=== PATIENT | female | born 1970 | race American Indian/Alaskan Native ===

== ENCOUNTER → 2020-06-04 | Outpatient (CLI) | payer BC | END | disposition home or self-care (01) | LOC: SLR 11:00 | PROVIDERS: ATTEND Surgery | DX: G47.30 Sleep apnea, unspecified (principal) | CPT/HCPCS: G0399 ==

== ENCOUNTER 2020-06-20 08:06 | Outpatient (CLI) | payer BC ==
--- NOTE | 2020-06-20 11:12 | Fluoroscopy Report ---
UPPER GI HISTORY: FUNCTIONAL DYSPEPSIA. TECHNIQUE: Single and double contrast barium technique utilized to evaluate the esophagus, stomach, and duodenal C-loop. FINDINGS: To begin the exam, swallowing was evaluated in the lateral position under direct fluorosco py. Swallowing was normal. No mucosal irregularity, mass, mass effect, or critical stenosis. There were no abnormal tertiary c ontractions as seen with dysmotility. One or 2 episodes of gastroesophageal reflux to the mid esophag us was witnessed. IMPRESSION: Mild gastroesophageal reflux. Normal anatomy. Fluoroscopic time: 2.1 minutes Number of fluoroscopic images: 23 Signer Name: Tao Kan Jr, MD Signed: 06/20/2020 11:08 AM Workstation Name: [id number]
--- NOTE | 2020-06-20 12:33 | Electrocardiograph Report ---
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
--- NOTE | 2020-06-20 14:05 | Treadmill Report ---
EXERCISE ECG/STRESS TEST REPORT REASON FOR TEST: Preoperative assessment for bariatric surgery. The patient exercised for 7 minutes and 30 seconds of a Jitendra protocol, reaching stage 3 and achieving 8.5 METs. Peak heart rate was 166 beats per minute. Peak blood pressure was 160 systolic. There was no chest pain. Test was stopped for fatigue. Baseline ECG was sinus rhythm. With exercise, there were no ST changes of ischemia. No significant dysrhythmias were noted. CONCLUSION: 1. Good exercise capacity. 2. No chest pain. 3. No ST changes of ischemia. 4. No significant dysrhythmias. 5. This is a normal exercise ECG test. JOB# [id number] CA/NTS
== END 2020-06-20 08:07 | disposition home or self-care (01) ==
LOC: FLUORO 08:06
PROVIDERS: ATTEND Surgery
DX: K21.9 Gastro-esophageal reflux disease without esophagitis (principal); K30 Functional dyspepsia
CPT/HCPCS: 74246; 93005; 93017

== ENCOUNTER 2020-07-23 07:19 | Day surgery (SDC) | payer BC ==
[~2020-07-23 07:19] MED LIST: SODIUM CHLORIDE 0.9% 1000 ML 1,000 ML IV SCH
--- NOTE | 2020-07-23 08:04 | Anesthesia Day of Surgery ---
Anesthesia Day of Surgery - Day of Surgery Patient Examined: Yes Patient H&P Reviewed: Yes Patient is NPO: Yes
--- NOTE | 2020-07-23 08:06 | Anesthesia Consultation ---
Anesthesia Consult and Med Hx Date of service: 07/23/20 - Airway Anesthetic Teeth Evaluation: Good ROM Head & Neck: Adequate Mental/Hyoid Distance: Adequate Mallampati Class: Class I Intubation Access Assessment: Good - Pre-Operative Health Status ASA Pre-Surgery Classification: ASA3 Proposed Anesthetic Plan: MAC - Pulmonary Hx Asthma: Yes (Flares up with URI) Hx Respiratory Symptoms: No (+2FS) Hx Sleep Apnea: Yes - Cardiovascular System Hx Hypertension: Yes (Pt reports negative cardiac workup) - Central Nervous System Hx Back Pain: Yes Hx Psychiatric Problems: Yes (Depression) - Gastrointestinal Hx Gastroesophageal Reflux Disease: No - Endocrine Hx Renal Disease: No Hx Liver Disease: No Hx Non-Insulin Dependent Diabetes: No Hx Thyroid Disease: Yes (In the past; off meds) - Hematic Hx Sickle Cell Disease: No - Other Systems Hx Obesity: Yes
--- NOTE | 2020-07-23 08:24 | Operative Report ---
Operative Report Operative Report: DATE: 07/23/2020 SURGERY: Upper endoscopy. SURGEON: Lianet Gonsalez M.D. PROCEDURE: EGD with biopsy PRE OP DX: morbid obesity, GERD POST OP DX: morbid obesity, GERD TYPE OF ANESTHESIA: MAC. ESTIMATED BLOOD LOSS: None. COMPLICATIONS: None. SPECIMENS REMOVED: antral and duodenal bx FINDINGS: 1. Small hiatal hernia. 2. peptic ulcer disease with ulcers seen in antrum pre-pyloric and duodenum INDICATIONS:INDICATION FOR PROCEDURE: Patient is a 49-year-old female with a long history of morbid obesity. She is planned to have a weight loss procedure and is here for preoperative planning EGD. PROCEDURE DETAILS: After consent was reviewed, patient was taken back to the operating room where patient was placed in the left lateral decubitus position and a bite block was placed in the mouth. After a time-out was called, MAC anesthesia was initiated. I then passed the endoscope into her oropharynx, into her esophagus, visualized the entire esophagus, which was all within normal limits. Z-line was noted to about 36 cm from incisors. I then visualized the stomach and the first portion of the duodenum. There was noted to be shallow ulcerations in the antrum, pre- pyloric, and in the duodenum. No bleeding or craters were seen. A cold forceps biopsy of both areas was taken and will be sent to pathology to evaluate for H.pylori. I then retroflexed the scope in the stomach and visualized the hiatus and I could see a small hiatal hernia. I then desufflated the stomach and removed the endoscope. Patient tolerated procedure well and was transferred to recovery room in good and stable condition.
--- NOTE | 2020-07-23 08:24 | Discharge Summary ---
Providers - Providers Date of Admission: 07/23/2020 Date of discharge: 07/23/20 Attending physician: MAURICIO ZUNIGA MD Hospitalization Reason for admission: egd pre-op bariatric surgery Condition: Good Procedures: egd with bx Hospital course: Pt presented for a pre-op EGD as part of planning for up coming bariatric surgery. Procedure was uneventful and pt recovered well and was discharged to home. Disposition: DC- TO HOME OR SELFCARE Final Discharge Diagnosis (Prints w/discharge instructions): morbid obesity, dyspepsia Core Measure Documentation - Palliative Care Palliative Care/ Comfort Measures: Not Applicable - Core Measures Any of the following diagnoses?: none Exam - Physical Exam Narrative exam: unchanged from pre-op Plan Diet: low carbohydrate Follow up with: MARIANO SINGH [Other] - 7 Days
[2020-07-23] MEDS ORDERED: fentaNYL 100 MCG/2 ML INJ ONE (08:53)
[2020-07-23] MEDS ORDERED: propofoL 200 MG/20 ML VIAL IV ONE (08:53)
[2020-07-23] MEDS ORDERED: ONDANSETRON 4 MG/2 ML INJ ONE (08:58)
[2020-07-23] MEDS ORDERED: LIDOCAINE MPF (2%) 20 MG/1 ML VIAL 5 ML ONE (08:58)
[2020-07-23] MEDS ORDERED: SUCRALFATE 1 GM/10 ML ORAL LIQD PO SCH (09:30)
[2020-07-23 10:54] VITALS: BP 144/79
--- NOTE | 2020-07-23 15:02 | Post Anesthesia Evaluation ---
- Post Anesthesia Evaluation Patient Participated: Yes Airway Patent: Yes Stable Respiratory Function: Yes Nausea/Vomiting: No Temp > 96.8F: Yes Pain Manageable: Yes Adequeate Hydration: Yes Anesthesia Complications: No Block Receding Appropriately: Not Applicable Patient on Ventilator: No
== END 2020-07-23 10:15 | disposition home or self-care (01) ==
LOC: GIO 07:19
PROVIDERS: ATTEND Surgery
DX: K21.9 Gastro-esophageal reflux disease without esophagitis (principal); K44.9 Diaphragmatic hernia without obstruction or gangrene; E66.01 Morbid (severe) obesity due to excess calories; I10 Essential (primary) hypertension; J45.909 Unspecified asthma, uncomplicated; G47.30 Sleep apnea, unspecified; F32.9 Major depressive disorder, single episode, unspecified; Z68.42 Body mass index [BMI] 45.0-49.9, adult; Z79.899 Other long term (current) drug therapy
CPT/HCPCS: 43239; 88305; 88342; J2405; J2704; J3010; J7030

== ENCOUNTER 2020-09-17 06:49 | Day surgery (SDC) | payer BC ==
[2020-09-17] MEDS ORDERED: SODIUM CHLORIDE 0.9% 1000 ML 1,000 ML IV SCH (07:00)
[2020-09-17] MEDS ORDERED: propofoL 200 MG/20 ML VIAL IV ONE (07:20)
[2020-09-17] MEDS ORDERED: LIDOCAINE MPF (2%) 20 MG/1 ML VIAL 5 ML ONE (07:20)
--- NOTE | 2020-09-17 07:31 | Anesthesia Consultation ---
Anesthesia Consult and Med Hx Date of service: 09/17/20 - Airway Anesthetic Teeth Evaluation: Good ROM Head & Neck: Adequate Mental/Hyoid Distance: Adequate Mallampati Class: Class II Intubation Access Assessment: Probably Good - Cardiac Exam Cardiac Exam: RRR - Pre-Operative Health Status ASA Pre-Surgery Classification: ASA2, ASA3 Proposed Anesthetic Plan: MAC - Pulmonary Hx Asthma: Yes (Flares up with URI) Hx Respiratory Symptoms: No (+2FS) Hx Sleep Apnea: Yes - Cardiovascular System Hx Hypertension: Yes (Pt reports negative cardiac workup) Hx Heart Attack/AMI: No - Central Nervous System Hx Back Pain: Yes Hx Psychiatric Problems: Yes (Depression) - Gastrointestinal Hx Gastroesophageal Reflux Disease: No - Endocrine Hx Renal Disease: No Hx Liver Disease: No Hx Non-Insulin Dependent Diabetes: No Hx Thyroid Disease: Yes (In the past; off meds) - Hematic Hx Sickle Cell Disease: No - Other Systems Hx Obesity: Yes - Additional Comments Anesthesia Medical History Comments: No h/o GAC. No FHAC.
--- NOTE | 2020-09-17 07:32 | Anesthesia Day of Surgery ---
Anesthesia Day of Surgery - Day of Surgery Patient Examined: Yes Patient H&P Reviewed: Yes Patient is NPO: Yes Beta Blockers: Yes Cardiac Clearance: Yes (negative cardiac workup per patient. ) Pulmonary Clearance: No Sharan's Test: N/A
--- NOTE | 2020-09-17 08:12 | Operative Report ---
Operative Report Operative Report: DATE: 09/17/2020 SURGERY: Upper endoscopy. SURGEON: Lianet Gonsalez M.D. PROCEDURE: EGD with biopsy PRE OP DX: morbid obesity, GERD, hx H. Pylori, hx PUD POST OP DX: same as pre-op TYPE OF ANESTHESIA: MAC. ESTIMATED BLOOD LOSS: None. COMPLICATIONS: None. SPECIMENS REMOVED: antral biopsy FINDINGS: 1. Small hiatal hernia. 2. Otherwise, normal esophagus, stomach and first portion of duodenum. INDICATIONS:INDICATION FOR PROCEDURE: Patient is a 49-year-old female with a long history of morbid obesity. She is planned to have a weight loss procedure and is here for preoperative planning EGD. She had a prior to EGD that showed gastric ulcers and bx was positive for H. Pylori. She completed the therapy for it and has continued pantoprazole. PROCEDURE DETAILS: After consent was reviewed, patient was taken back to the operating room where patient was placed in the left lateral decubitus position and a bite block was placed in the mouth. After a time-out was called, MAC anesthesia was initiated. I then passed the endoscope into her oropharynx, into her esophagus, visualized the entire esophagus, which was all within normal limits. Z-line was noted to about 36cm from incisors. I then visualized the stomach and the first portion of the duodenum and there were no abnormalities I could clearly visualize except for antral gastritis. A cold forceps biopsy of the antrum was taken and will be sent to pathology to evaluate for H.pylori. I then retroflexed the scope in the stomach and visualized the hiatus and I could see a small hiatal hernia. There were no visible ulcers and there was much minimal gastritis compared to the last EGD. I then desufflated the stomach and removed the endoscope. Patient tolerated procedure well and was transferred to recovery room in good and stable condition.
--- NOTE | 2020-09-17 08:13 | Discharge Summary ---
Providers - Providers Date of Admission: 09/17/2020 Date of discharge: 09/17/20 Attending physician: MAURICIO ZUNIGA MD Primary care physician: MARIANO HUA Hospitalization Reason for admission: EGD Condition: Good Procedures: EGD with biopsy Hospital course: Pt presented for a pre-op EGD as part of planning for up coming bariatric surgery. Procedure was uneventful and pt recovered well and was discharged to home. Disposition: DC-01 TO HOME OR SELFCARE Final Discharge Diagnosis (Prints w/discharge instructions): GERD, morbid obesity Core Measure Documentation - Palliative Care Palliative Care/ Comfort Measures: Not Applicable - Core Measures Any of the following diagnoses?: none Exam - Physical Exam Narrative exam: unchanged from pre-op Plan Activity: no restrictions Diet: low carbohydrate Follow up with: MARIANO HUA MD [Primary Care Provider] - 7 Days
[2020-09-17 08:41] VITALS: BP 128/77
== END 2020-09-17 06:50 | disposition home or self-care (01) ==
LOC: GIO 06:49
PROVIDERS: ATTEND Surgery
DX: K21.9 Gastro-esophageal reflux disease without esophagitis (principal); E66.01 Morbid (severe) obesity due to excess calories; K27.9 Peptic ulcer, site unspecified, unspecified as acute or chronic, without hemorrhage or perforation; K44.9 Diaphragmatic hernia without obstruction or gangrene; K29.50 Unspecified chronic gastritis without bleeding; I10 Essential (primary) hypertension; J45.909 Unspecified asthma, uncomplicated; G47.30 Sleep apnea, unspecified; F32.9 Major depressive disorder, single episode, unspecified; E07.9 Disorder of thyroid, unspecified; Z68.41 Body mass index [BMI] 40.0-44.9, adult; Z79.899 Other long term (current) drug therapy
CPT/HCPCS: 43239; 88305; 88342; J2704; J7030

== ENCOUNTER 2020-11-04 07:30 | Inpatient (IN) | payer BC ==
--- NOTE | 2020-10-30 14:54 | Anesthesia Consultation ---
Anesthesia Consult and Med Hx Date of service: 11/04/20 - Airway Anesthetic Teeth Evaluation: Good ROM Head & Neck: Adequate Mental/Hyoid Distance: Adequate Mallampati Class: Class I Intubation Access Assessment: Good - Pre-Operative Health Status ASA Pre-Surgery Classification: ASA3 Proposed Anesthetic Plan: General - Pulmonary Hx Smoking: No (PFTs-mild restrictive) Hx Asthma: Yes (WHEN HAS COLD.LAST IH USE 2019) Hx Respiratory Symptoms: No (+2FS) Hx Sleep Apnea: Yes (DX SLEEP APNEA WITH CPAP USE) - Cardiovascular System Hx Hypertension: Yes Hx Heart Attack/AMI: No (Negative ETT) - Central Nervous System Hx Seizures: No Hx Back Pain: Yes Hx Psychiatric Problems: Yes (Anxiety/Depression) - Gastrointestinal Hx Gastroesophageal Reflux Disease: No - Endocrine Hx Renal Disease: No Hx Liver Disease: No Hx Non-Insulin Dependent Diabetes: No (5.9) Hx Thyroid Disease: Yes (In the past; off meds) - Hematic Hx Anemia: No Hx Sickle Cell Disease: No - Other Systems Hx Alcohol Use: Yes (OCC.) Hx Substance Use: No Hx Cancer: No Hx Obesity: Yes
[2020-10-30 15:07] LABS: Alanine Aminotransferase 11 units/L (7-56); Blood Urea Nitrogen 17 mg/dL (7-17); Calcium 9.6 mg/dL (8.4-10.2); Hemolysis Index 3
[2020-10-30 15:09] LABS: BUN/Creatinine Ratio 28
[2020-10-30 15:15] LABS: Hematocrit 38.7 % (30.3-42.9); Mean Corpuscular HGB Conc 34 % (30-34); Mean Corpuscular Volume 82 fl (79-97); Platelet Count 240 K/mm3 (140-440); Red Blood Count 4.71 M/mm3 (3.65-5.03); Red Cell Distribution Width 14.3 % (13.2-15.2)
[~2020-11-04 07:30] MED LIST changes: +ACETAMINOPHEN IV 1,000 MG/100 ML BOTTLE IV NR; +BUPIVACAINE/PF (0.5%) 5 MG/1 ML 30 ML VIAL INFILTRATI ONE; +ENOXAPARIN 40 MG/0.4 ML INJ SUB-Q NR; +GABAPENTIN 500 MG/10 ML ORAL LIQD PO NR; +LIDOCAINE 1%/EPINEPHRINE 1:100,000 VIAL (20 ML) INFILTRATI ONE; +MIDAZOLAM 2 MG/2 ML INJ IV NR; -SODIUM CHLORIDE 0.9% 1000 ML 1,000 ML IV SCH; +metroNIDAZOLE/NS 500 MG/100 ML 500 MG/100 ML BAG IV NR
[2020-11-04] MEDS ORDERED: MAGNESIUM SULFATE 4 GM/100 ML BAG IV ONE (07:58)
[2020-11-04] MEDS ORDERED: ROCURONIUM 50 MG/5 ML INJ IV ONE ×2 (08:16→11:04)
[2020-11-04] MEDS ORDERED: ONDANSETRON 4 MG/2 ML INJ ONE (08:16)
[2020-11-04] MEDS ORDERED: LIDOCAINE (2%) 20 MG/1 ML VIAL 20 ML MDV INFILTRATI ONE (08:18)
[2020-11-04] MEDS ORDERED: dexAMETHasone 20 MG/5 ML VIAL ONE (08:19)
[2020-11-04] MEDS ORDERED: KETAMINE/STERILE WATER 50 MG/ML SYRINGE ONE (08:20)
[2020-11-04] MEDS ORDERED: LIDOCAINE MPF (2%) 20 MG/1 ML VIAL 5 ML ONE (08:24)
[2020-11-04] MEDS: LACTATED RINGERS 1,000 ML IV SCH ×2 (08:35→13:32)
--- NOTE | 2020-11-04 08:55 | Anesthesia Day of Surgery ---
Anesthesia Day of Surgery - Day of Surgery Patient Examined: Yes Patient H&P Reviewed: Yes Patient is NPO: Yes
[2020-11-04] MEDS ORDERED: SCOPOLAMINE TRANSDERMAL PATCH 72 HR TD SCH (10:00)
[2020-11-04] MEDS ORDERED: SODIUM CHLORIDE 0.9% 100 ML ONE (10:47)
[2020-11-04] MEDS ORDERED: BUPIVACAINE/PF (0.5%) 5 MG/1 ML 30 ML VIAL INFILTRATI ONE (10:56)
[2020-11-04] MEDS ORDERED: SODIUM CHLORIDE 0.9% 100 ML IVPB IV ONE (10:56)
[2020-11-04] MEDS ORDERED: LIDOCAINE 1%/EPINEPHRINE 1:100,000 VIAL (20 ML) INFILTRATI ONE (10:57)
[2020-11-04] MEDS ORDERED: SUGAMMADEX SODIUM 200 MG/2 ML VIAL IV ONE (11:45)
[2020-11-04] MEDS ORDERED: WATER FOR IRRIG STERILE 1,000 ML BOTTLE IR ONE (11:48)
[2020-11-04] MEDS ORDERED: SODIUM CHLORIDE 0.9% IRR 1,000 ML BOTTLE IR ONE (11:48)
[2020-11-04] MEDS ORDERED: fentaNYL 100 MCG/2 ML INJ ONE (12:14)
[2020-11-04] MEDS: fentaNYL 100 MCG/2 ML INJ IV PRN ×2 (12:17→12:45)
[2020-11-04] MEDS ORDERED: MORPHINE 2 MG/1 ML INJ IV PRN (12:46)
[2020-11-04] MEDS ORDERED: METOCLOPRAMIDE 10 MG/2 ML INJ IV PRN (12:46)
[2020-11-04] MEDS ORDERED: ONDANSETRON 4 MG/2 ML INJ IV PRN (12:46)
[2020-11-04] MEDS ORDERED: HYDROcodone/Acetaminophen 7.5-325MG-15ML ORAL LIQD PO PRN (12:46)
[2020-11-04] MEDS ORDERED: HYDROmorphone 1 MG/1 ML INJ IV PRN (12:46)
--- NOTE | 2020-11-04 12:57 | Operative Report ---
Operative Report Operative Report: DATE:11/04/2020 Surgeon: Lianet Gonsalez MD [employer] surgeon: Chelsy Ruvalcaba CSA MD Pre-op Dx: morbid obesity, hiatal hernia Post-op Dx: morbid obesity, hiatal hernia Procedure: 1. laparoscopic sleeve gastrectomy, hiatal hernia repair Anesthesia: GETA, TAP block EBL: <10ml Specimen: gastric remnant Complication: none immediate Indication: 49 year old female with a history of morbid obesity . Pt is here for sleeve gastrectomy for weight loss to achieve healthier weight and improve or resolve her co-morbidities. She expressed understanding of the risks and benefits. PROCEDURE IN DETAIL: After consent was reviewed, patient was taken back to the operating room, where patient was placed supine on the bed with both arms out. The patient's legs were doubly strapped to the bed. Patient had a foot board in place. Patient had a body warmer placed by anesthesia. General anesthesia was induced with successful endotracheal intubation. Patient was then prepped and draped in normal sterile surgical fashion. After a time-out was called, I made a stab incision in the left subcostal area and placed a Veress needle through this incision and insufflated the abdomen to 18 mmHg pressure. I then counted down a handsbreadth below the xiphoid process in the midline and slightly left lateral injected local anesthetic and made about 1 cm transverse incision. I then used a 5-mm Optiview trocar to enter into the abdomen. There was no gross injury to any intra-abdominal structures. I then placed a 30-degree scope through this port and inspected the abdomen. I then placed a 5-mm port in the right upper quadrant, and 1 epigastric area below the costovertebral angle. I then placed a 15-mm port about a handsbreadth in the right mid abdomen. After which a 5mm port was placed in left upper quadrant port along the anterior axillary line in a similar fashion. A liver retractor was placed to the epigastric port to elevate the left lateral lobe and liver. The anterior gastric fat pad was excised. A small hiatal hernia was appreciated. The right and left crura were skeletonized away from the hernia sac until 2 cm of distal esophagus and the stomach were resting comfortably in the abdominal cavity. Using O Surgidac suture a horizontal mattress was performed to do an anterior crura plasty. Starting approximately 6 cm proximal to the pylorus, using a LigaSure device the short gastrics were taken all the way to the left citlaly. Once the lateral portion of the stomach was mobile anesthesia passed a 40 Malay bougie along the medial aspect to act as a stent. Using serial firings of endoscopic stapler to gold, followed by 4 blue, the lateral portion of the stomach was transected making s ure to did not close to the 2 cm to the incisura. All staple loads were supported with Ethicon buttress strips. The sleeve stomach was seen to be without kink obstruction or twisting. The pressure was decreased to 10 mmHg. The staple line was inspected for approximately 5 minutes. There was no significant bleeding appreciated except for a slight loose at the most distal portion of the staple line. Bleeding was minimal and easily controlled with minimal cautery. Tisseel was then sprayed along the entirety of the staple line. The liver retractor was removed. This was after the gastric remnant was grasped and pulled into the 15 mm trocar site. The stomach was extracted via the 15 mm trocar site. After the fascia had to be stretched with a Sarah clamp to easily remove the stomach, the fascia was closed using a sanjay chaim device at the level of the fascia with an 0 PDS. trocars were removed under direct visualization. A TAP block was performed in transverse abdominis plane at the mid axillary line bilaterally using 60cc of 0.25% marcaine. All skin incisions were closed with 4-0 Monocryl followed by Dermabond. Patient was awoken, extubated, and taken to recovery stable condition. All counts were correct.
[2020-11-04] MEDS ORDERED: hydrALAZINE 20 MG/1 ML INJ IV PRN (13:17)
[2020-11-04] MEDS: hydrALAZINE 20 MG/1 ML INJ IV PRN (13:27)
[2020-11-04] MEDS: KETOROLAC 30 MG/1 ML INJ IV SCH ×2 (13:27→18:37)
--- NOTE | 2020-11-04 14:20 | Post Anesthesia Evaluation ---
- Post Anesthesia Evaluation Patient Participated: Yes Airway Patent: Yes Stable Respiratory Function: Yes Nausea/Vomiting: No Temp > 96.8F: Yes Pain Manageable: Yes Adequeate Hydration: Yes Anesthesia Complications: No Other Comments: Awaiting bed availability
[2020-11-04] MEDS: SIMETHICONE 80 MG CHEW TAB PO PRN ×2 (14:46→21:58)
[2020-11-04] MEDS: PANTOPRAZOLE 40 MG INJ IV SCH (15:23)
[2020-11-04] MEDS: ACETAMINOPHEN IV 1,000 MG/100 ML BOTTLE IV SCH ×2 (15:23→21:59)
[2020-11-04] MEDS: ceFAZolin/NS 1 GM/50 ML 1 GM/50 ML BAG IV SCH (21:56)
[2020-11-04] MEDS: metroNIDAZOLE/NS 500 MG/100 ML 500 MG/100 ML BAG IV SCH (23:37)
[2020-11-05] MEDS: hydrALAZINE 20 MG/1 ML INJ IV PRN (01:14)
[2020-11-05] MEDS: KETOROLAC 30 MG/1 ML INJ IV SCH ×3 (02:29→13:26)
[2020-11-05] MEDS: ACETAMINOPHEN IV 1,000 MG/100 ML BOTTLE IV SCH ×2 (03:08→08:53)
[2020-11-05] MEDS: ceFAZolin/NS 1 GM/50 ML 1 GM/50 ML BAG IV SCH (03:08)
[2020-11-05] MEDS: LACTATED RINGERS 1,000 ML IV SCH ×3 (04:47→04:53)
[2020-11-05] MEDS: metroNIDAZOLE/NS 500 MG/100 ML 500 MG/100 ML BAG IV SCH ×2 (04:48→11:10)
[2020-11-05 06:15] LABS: Basophils % (Auto) 0.1 % (0.0-1.8); Hematocrit 36.4 % (30.3-42.9); Hemoglobin 11.9 gm/dl (10.1-14.3); Lymphocytes # (Auto) 1.1 K/mm3 (1.2-5.4); Lymphocytes % (Auto) 9.7 % (13.4-35.0); Mean Corpuscular HGB Conc 33 % (30-34); Mean Corpuscular Volume 82 fl (79-97); Monocytes # (Auto) 0.8 K/mm3 (0.0-0.8); Monocytes % (Auto) 7.7 % (0.0-7.3); Platelet Count 262 K/mm3 (140-440); Red Blood Count 4.44 M/mm3 (3.65-5.03); Red Cell Distribution Width 13.9 % (13.2-15.2)
[2020-11-05 06:41] LABS: Alanine Aminotransferase 14 units/L (7-56); Blood Urea Nitrogen 8 mg/dL (7-17); Hemolysis Index 0
[2020-11-05 06:45] LABS: BUN/Creatinine Ratio 13
[2020-11-05] MEDS: PANTOPRAZOLE 40 MG INJ IV SCH ×2 (08:55→10:00)
[2020-11-05] MEDS: ENOXAPARIN 40 MG/0.4 ML INJ SUB-Q SCH ×2 (08:55→10:00)
--- NOTE | 2020-11-05 15:41 | Discharge Summary ---
Providers - Providers Date of Admission: 11/04/20 07:54 Date of discharge: 11/05/20 Attending physician: MAURICIO ZUNIGA MD 11/04/20 12:46 Physical Therapy Evaluation and Treat [CONS] Routine Comment: Reason For Exam: post op bariatric surgery Primary care physician: MARIANO HUA Hospitalization Reason for admission: Status post laparoscopic sleeve gastrectomy Condition: Good Procedures: Laparoscopic sleeve gastrectomy with hiatal hernia repair Hospital course: Patient had an uneventful postoperative course status post laparoscopic gastric sleeve with hiatal hernia pair. Patient osiel afebrile with normal vital signs. Patient was tolerating clear liquids, ambulating well, with good pain control. Patient showed no gross clinical signs of leak or bleeding upon discharge. Disposition: DC- TO HOME OR SELFCARE Final Discharge Diagnosis (Prints w/discharge instructions): Morbid obesity, hiatal hernia Core Measure Documentation - Palliative Care Palliative Care/ Comfort Measures: Not Applicable - Core Measures Any of the following diagnoses?: none Exam - Constitutional Vitals: Temp Pulse Resp BP Pulse Ox 98.0 F 90 16 131/71 96 11/05/20 12:58 11/05/20 12:58 11/05/20 12:58 11/05/20 12:58 11/05/20 12:58 General appearance: Present: no acute distress, obese - Respiratory Respiratory effort: normal - Cardiovascular Heart Sounds: Present: S1 & S2 - Extremities Extremities: no ischemia - Abdominal General gastrointestinal: Present: soft, non-distended, other (Incisions clean dry and intact, appropriately tender to palpation) Plan Activity: advance as tolerated Diet: clear liquids Wound: open to air, keep clean and dry Follow up with: MARIANO HUA MD [Primary Care Provider] - 7 Days
[2020-11-05 17:09] VITALS: BP 137/62
== END 2020-11-05 17:42 | disposition home or self-care (01) | DRG 621 ==
LOC: 3A 07:54 → 3B-SURG 16:17
PROVIDERS: ADMIT Surgery; ATTEND Surgery
PROC: 0DB64ZZ Excision of Stomach, Percutaneous Endoscopic Approach (ICD-10-PCS; principal; 2020-11-04)
PROC: 0BJT4ZZ Inspection of Diaphragm, Percutaneous Endoscopic Approach (ICD-10-PCS; 2020-11-04)
PROC: 0BU Respiratory System, Supplement (ICD-10-PCS; 2020-11-04)
PROC: 0BH17EZ Insertion of Endotracheal Airway into Trachea, Via Natural or Artificial Opening (ICD-10-PCS; 2020-11-04)
DX: E66.01 Morbid (severe) obesity due to excess calories (principal); Z68.41 Body mass index [BMI] 40.0-44.9, adult; Z71.3 Dietary counseling and surveillance; K44.9 Diaphragmatic hernia without obstruction or gangrene
CPT/HCPCS: 36415; 80053; 85025; 85027; 88307; 88342; G0378; C9113; C9250; J0131; J0360; J0690; J1100; J1650; J1885; J2250; J2405; J2704; J3010; J3475; J3490; J7120; U0003

== ENCOUNTER 2020-12-19 11:18 | Outpatient (CLI) | payer BC ==
[2020-12-19 12:05] LABS: Basophils % (Auto) 0.4 % (0.0-1.8); Eosinophils % (Auto) 0.7 % (0.0-4.3); Hematocrit 38.1 % (30.3-42.9); Hemoglobin 12.7 gm/dl (10.1-14.3); Lymphocytes # (Auto) 1.6 K/mm3 (1.2-5.4); Lymphocytes % (Auto) 24.6 % (13.4-35.0); Mean Corpuscular HGB Conc 33 % (30-34); Mean Corpuscular Volume 83 fl (79-97); Monocytes # (Auto) 0.6 K/mm3 (0.0-0.8); Monocytes % (Auto) 9.5 % (0.0-7.3); Platelet Count 233 K/mm3 (140-440); Red Blood Count 4.57 M/mm3 (3.65-5.03)
[2020-12-19 12:08] LABS: % Iron Saturation 34.84 %; Alanine Aminotransferase 13 units/L (7-56); Albumin 4.1 g/dL (3.9-5); Blood Urea Nitrogen 12 mg/dL (7-17); Calcium 9.8 mg/dL (8.4-10.2); Chol/HDL Ratio 2.48 %; HDL Cholesterol 50 mg/dL (40-59); Hemolysis Index 10; Iron 77 ug/dL (37-170); LDL Cholesterol,Direct 64 mg/dL (50-130); Total Iron Binding Capacity 221 mcg/dL (250-450)
[2020-12-19 13:37] LABS: BUN/Creatinine Ratio 12
== END 2020-12-19 11:19 | disposition home or self-care (01) ==
LOC: LAB 11:18
PROVIDERS: ATTEND Surgery
DX: E55.9 Vitamin D deficiency, unspecified (principal); E66.01 Morbid (severe) obesity due to excess calories; K30 Functional dyspepsia; E11.9 Type 2 diabetes mellitus without complications; K90.9 Intestinal malabsorption, unspecified; Z98.84 Bariatric surgery status
CPT/HCPCS: 36415; 80053; 80061; 82306; 82607; 82728; 83036; 83550; 83970; 84425; 84443; 85025